=== PATIENT | male | born 1925 | race Caucasian/White ===

== ENCOUNTER 2017-01-16 15:42 | Emergency (ER) | payer OTHER ==
[~2017-01-16] VITALS: Ht 177.8 cm; Wt 75.4 kg
[~2017-01-16 15:42] MED LIST: AMB5 PO; ASPI-461; CARV6.25 PO; FRS/40 PO; GLC850 PO; GLIP5TAB3 PO; LISI10TA PO; NTRSL3 UT; OMEP20TA PO; RANI150C4 PO; SILV1CRE73 TOP; STLS PO; TRIA0.1C20 TOP
[2017-01-16 15:44] VITALS: TEMP 36.5; Ht 177.8 cm; Wt 75.4 kg
--- NOTE | 2017-01-16 16:29 | DIAGNOSTIC IMAGING REPORT ---
RIGHT HIP 3 VIEWS HISTORY: Right foot pain. injury COMPARISON: None. FINDINGS: Posterior calcaneal spur. No fracture or dislocation. Dorsal soft tissue swelling. The bones are osteopenic. The Lisfranc joint is intact. Mild degenerative changes within the right foot. No radiopaque foreign bodies. IMPRESSION: No acute fracture or dislocation within the right foot. Dorsal soft tissue swelling. Electronically signed by: Kaden Delgado M.D. 01/16/2017 4:28 PM Dictated Date/Time: 01/16/2017 4:25 PM
[2017-01-16] MEDS ORDERED: AMIO200T4 PO (17:05)
[2017-01-16] MEDS ORDERED: WARF5TAB90 PO (17:05)
[2017-01-16] MEDS ORDERED: ZOLP6.252 PO (17:05)
[2017-01-16] MEDS ORDERED: ANSHCCR/ TOP (17:05)
[2017-01-16] MEDS ORDERED: DOCU100C PO (17:05)
[2017-01-16] MEDS ORDERED: TRMCR515 TOP (17:05)
[2017-01-16] MEDS ORDERED: CARV12.5 PO (17:05)
[2017-01-16] MEDS ORDERED: CHOL100027 PO (17:05)
[2017-01-16] MEDS ORDERED: LISI10TA PO (17:05)
[2017-01-16] MEDS ORDERED: GLIP5TAB3 PO (17:05)
[2017-01-16 19:21] LABS: PROTHROMBIN TIME (PATIENT) > 100.0 SECONDS (9.0-12.0)
[2017-01-16 19:26] LABS: INR > 8.0 (0.9-1.1); PARTIAL THROMBOPLASTIN RATIO 3.7
[2017-01-16] MEDS ORDERED: PHYTONADIONE 5 MG TAB PO STA (19:30)
--- NOTE | 2017-01-16 19:33 | EMERGENCY ROOM VISIT NOTE ---
History Report prepared by Melissa: Kathy Underwood Under the Supervision of: Dr. Omega Bloom D.O. First contact with patient: 16:00 Chief Complaint: FOOT PAIN Stated Complaint: FOOT History of Present Illness The patient is a 89 year old male who presents to the Emergency Room with complaints of constant right foot pain beginning this morning. The patient states that his foot was completely normal before he went to sleep last night and when he woke up his foot was swollen, red, and bruised. He reports that he does not remember any injury or trauma to the foot. He notes that he is on a blood thinner and occasionally has foot swelling during the daytime. The patient states that he has seen a foot doctor and was told to come into the ED. Source of History: patient Onset: this morning Position: foot (right) Quality: other (swelling) Timing: constant Note: Pt complains of redness and bruising. He denies any known injury or trauma. Review of Systems See HPI for pertinent positives & negatives. A total of 10 systems reviewed and were otherwise negative. Past Medical & Surgical Medical Problems: (1) Coronary artery disease (2) Dyslipidemia (3) Esophageal dysphagia (4) Essential hypertension (5) s/p AAA repair (6) s/p appendectomy (7) s/p CABG (8) s/p EGD with esophageal dilatation (9) s/p exploratory lap (10) s/p left carotid endarterectomy (11) s/p repair right inguinal hernia (12) Small bowel obstruction Family History No pertinent family history stated. Social History Smoking Status: Former Smoker Alcohol Use: none Marital Status: Occupation Status: retired Current/Historical Medications Scheduled Amiodarone Hcl (Cordarone), 200 MG PO DAILY Carvedilol (Coreg), 12.5 MG PO BID Cholecalciferol (Vitamin D 1000 Unit), 1,000 INTER.UNIT PO DAILY Docusate Sodium (Stool Softener), 200 MG PO QAM Furosemide (Lasix), 20 MG PO DAILY Glipizide (Glucotrol), 10 MG PO BID Hydrocortisone (Hydrocortisone 2.5%), 1 APPLN TOP DAILY Lisinopril (Prinivil), 10 MG PO DAILY Nitroglycerin (Nitrostat), 0.3 MG UT PRN Ranitidine Hcl (Ranitidine Hcl), 150 MG PO BID Triamcinolone Acet (Triamcinolone Acetonide), 1 APPLN TOP DAILY Warfarin Sodium (Coumadin), 5 MG PO Q2D Warfarin Sodium (Coumadin), 2.5 MG PO Q2D Zolpidem Tartrate (Ambien Cr), 6.25 MG PO HS Allergies Coded Allergies: Atorvastatin (Verified Allergy, Mild, 01/28/13) Erythromycin (Verified Allergy, Mild, 01/28/13) Penicillins (Verified Allergy, Mild, 01/28/13) Simvastatin (Verified Allergy, Mild, 01/28/13) Physical Exam Vital Signs Date Time Temp Pulse Resp B/P (MAP) Pulse Ox O2 Delivery O2 Flow Rate FiO2 01/16/17 19:54 69 20 161/75 97 01/16/17 18:40 61 20 177/85 92 Room Air 01/16/17 17:46 57 20 154/70 92 Room Air 01/16/17 15:44 36.5 66 17 156/73 92 Room Air Physical Exam CONSTITUTIONAL/VITAL SIGNS: Reviewed / noted above. GENERAL: Non-toxic in appearance. INTEGUMENTARY: Warm, dry, and [place]. HEAD: Normocephalic. EYES: without scleral icterus or trauma. ENT/OROPHARYNX: clear and moist. LYMPHADENOPATHY/NECK: Is supple without lymphadenopathy or meningismus. RESPIRATORY: Lungs clear and equal. CARDIOVASCULAR: Regular rate and rhythm. GI/ABDOMEN: Soft and nontender. No organomegaly or pulsatile mass. No rebound or guarding. Normal bowel sounds. EXTREMITIES: Tender to palpation to the dorsal aspect of the right foot. Moderate diffuse swelling and ecchymosis throughout the entire foot. Bilateral lower extremity edema. BACK: No CVA tenderness. NEUROLOGICAL: Intact without focal deficits. PSYCHIATRIC: normal affect. MUSCULOSKELETAL: Normally developed with good muscle tone. Medical Decision & Procedures ER Provider Diagnostic Interpretation: X ray results and stated below per my interpretation and radiology interpretation. RIGHT HIP 3 VIEWS FINDINGS: Posterior calcaneal spur. No fracture or dislocation. Dorsal soft tissue swelling. The bones are osteopenic. The Lisfranc joint is intact. Mild degenerative changes within the right foot. No radiopaque foreign bodies. IMPRESSION: No acute fracture or dislocation within the right foot. Dorsal soft tissue swelling. Electronically signed by: Kaden Delgado M.D. 01/16/2017 4:28 PM Dictated Date/Time: 01/16/2017 4:25 PM Laboratory Results Test 01/16/17 18:42 Prothrombin Time > 100.0 SECONDS Prothromb Time International Ratio > 8.0 (0.9-1.1) Activated Partial Thromboplast Time 96.2 SECONDS (21.0-31.0) Partial Thromboplastin Ratio 3.7 Laboratory results as stated above per my review. Medications Administered Medications (Trade) Dose Ordered Sig/Abhishek Route Start Time Stop Time Status Last Admin Dose Admin Phytonadione (Mephyton Tab) 2.5 mg NOW STAT PO 01/16/17 19:30 01/16/17 19:31 DC 01/16/17 19:51 2.5 MG ED Course 1600: Previous medical records were reviewed. The patient was evaluated in room A4. A complete history and physical examination was performed. 1929: Mephyton Tab 2.5mg PO. 1933: On reevaluation, the patient is doing well. I discussed the results and findings with the patient. He verbalized agreement of the treatment plan. The patient was discharged home. Medical Decision Differential diagnosis: Etiologies such as fracture, dislocation, neurovascular compromise, compartment syndrome, soft tissue injury, as well as others were entertained. This is an 89-year-old male who presents to the ED with a chief complaint of right foot pain. The patient states that he noticed swelling of his right foot 2 days ago. He states that he saw a differential specialist yesterday who told them that it was bruised. The patient is chronically on Coumadin. His exam reveals some tenderness to the dorsal aspect of the foot. The other aspects of the foot reveal diffuse ecchymosis and swelling. He does have bilateral lower extremity edema in both lower extremities. X-ray of the right foot did not show any fractures or dislocations. INR is greater than 8. The patient was given 2.5 mg of oral vitamin K. He was told the results of this test. He was told to hold his Coumadin over the weekend. He is to have his INR rechecked on Thursday. He is felt to be stable for discharge. Medication Reconcilliation Current Medication List: was personally reviewed by me Blood Pressure Screening Patient's blood pressure: Elevated blood pressure Blood pressure disposition: Elevated BP felt to be situational Impression Primary Impression: Elevated INR Additional Impression: Foot contusion Scribe Attestation The scribe's documentation has been prepared under my direction and personally reviewed by me in its entirety. I confirm that the note above accurately reflects all work, treatment, procedures, and medical decision making performed by me. Departure Information Dispostion Home / Self-Care Referrals No Doctor, Assigned (PCP) Patient Instructions My [facility] Additional Instructions Did not take your Coumadin until rechecked by your doctor or Coumadin clinic on Thursday. Have your INR/Coumadin level rechecked on Thursday. Your INR today is >8. Elevate leg as much as possible. Return for any concerns or any additional areas of bleeding. Problem Qualifiers
[2017-01-16 19:54] VITALS: BP 161/75; PULSE 69; O2SAT 97
== END 2017-01-16 19:55 | disposition home or self-care (01) ==
LOC: C.EDB 15:43 → C.EDA 19:55
DX: Z79.1 Long term (current) use of non-steroidal anti-inflammatories (NSAID) (principal); S90.30XA Contusion of unspecified foot, initial encounter; X58.XXXA Exposure to other specified factors, initial encounter; I25.10 Atherosclerotic heart disease of native coronary artery without angina pectoris; E78.5 Hyperlipidemia, unspecified; I10 Essential (primary) hypertension; Z87.891 Personal history of nicotine dependence; Z79.01 Long term (current) use of anticoagulants; Z51.81 Encounter for therapeutic drug level monitoring

== ENCOUNTER 2017-01-19 12:46 | Emergency (ER) | payer OTHER ==
[~2017-01-19] VITALS: Ht 177.8 cm; Wt 73.0 kg
[~2017-01-19 12:46] MED LIST changes: -AMB5 PO; +AMIO200T4 PO; +ANSHCCR/ TOP; -ASPI-461; +CARV12.5 PO; -CARV6.25 PO; +CHOL100027 PO; +DOCU100C PO; -GLC850 PO; -OMEP20TA PO; -SILV1CRE73 TOP; -STLS PO; -TRIA0.1C20 TOP; +TRMCR515 TOP; +WARF5TAB90 PO; +ZOLP6.252 PO
[2017-01-19 13:09] VITALS: TEMP 36.7; Ht 177.8 cm; Wt 73.0 kg
--- NOTE | 2017-01-19 13:32 | EMERGENCY ROOM VISIT NOTE ---
History First contact with patient: 13:19 Chief Complaint: FOOT PAIN Stated Complaint: FOOT PAIN History of Present Illness The patient is a 89 year old male who presents to the Emergency Room with complaints of foot pain and swelling. The patient was seen here 2 days ago. He had swelling and bruising to the right foot. He did not have any specific injury. The patient's INR was greater than 8. He does take Coumadin. He was given vitamin K and held his Coumadin over the weekend. An x-ray of the foot 2 days ago did not reveal any acute abnormality. The patient had also seen a foot doctor who thought it was a bruise. The patient does not recall any falls or injuries. He states that the swelling and bruising have worsened. He rates his discomfort an 8/10. He has pain with weightbearing. He denies any pain in his chest or trouble breathing. He denies any abdominal pain, nausea or vomiting. He denies any persistent numbness or tingling. He denies any coolness in the foot. Review of Systems A 10 system review of systems was completed with positives and pertinent negatives listed in the HPI. Past Medical/Surgical History Medical Problems: (1) Coronary artery disease (2) Dyslipidemia (3) Esophageal dysphagia (4) Essential hypertension (5) s/p AAA repair (6) s/p appendectomy (7) s/p CABG (8) s/p EGD with esophageal dilatation (9) s/p exploratory lap (10) s/p left carotid endarterectomy (11) s/p repair right inguinal hernia (12) Small bowel obstruction Social History Smoking Status: Former Smoker Alcohol Use: none Marital Status: Occupation Status: retired Current/Historical Medications Scheduled Amiodarone Hcl (Cordarone), 200 MG PO DAILY Carvedilol (Coreg), 12.5 MG PO BID Cholecalciferol (Vitamin D 1000 Unit), 1,000 INTER.UNIT PO DAILY Docusate Sodium (Stool Softener), 200 MG PO QAM Furosemide (Lasix), 20 MG PO DAILY Glipizide (Glucotrol), 10 MG PO BID Hydrocortisone (Hydrocortisone 2.5%), 1 APPLN TOP DAILY Lisinopril (Prinivil), 10 MG PO DAILY Nitroglycerin (Nitrostat), 0.3 MG UT PRN Ranitidine Hcl (Ranitidine Hcl), 150 MG PO BID Triamcinolone Acet (Triamcinolone Acetonide), 1 APPLN TOP DAILY Warfarin Sodium (Coumadin), 5 MG PO Q2D Warfarin Sodium (Coumadin), 2.5 MG PO Q2D Zolpidem Tartrate (Ambien Cr), 6.25 MG PO HS Physical Exam Vital Signs Date Time Temp Pulse Resp B/P (MAP) Pulse Ox O2 Delivery O2 Flow Rate FiO2 01/19/17 17:26 67 20 153/81 97 01/19/17 16:11 67 01/19/17 15:05 56 20 156/83 90 Room Air 01/19/17 13:09 36.7 55 22 143/67 93 Room Air Physical Exam VITALS: Vitals are noted on the nurse's note and reviewed by myself. Vital signs stable. The patient is afebrile. GENERAL: This is an 89-year-old male, in no acute distress, nondiaphoretic, well -developed well-nourished. SKIN: There is moderate edema and ecchymosis noted to the right foot. There is erythema, edema and tenderness over the dorsal aspect. There is ecchymosis extending to the toes. There is no lymphangitic streaking. There is mild warmth but it is not hot. There is no tenting of the skin. Capillary reflex less than 2 seconds. HEAD: Normocephalic atraumatic. EARS: The external ears are normal in appearance. EYES: Pupils equal round and reactive to light and accommodation. Conjunctivae without injection, sclerae without icterus. Extraocular movements intact. NOSE: Patent, turbinates without inflammation or discharge. MOUTH: Mucous membranes moist. Tonsils are not enlarged. Pharynx without erythema or exudate. Uvula midline. Airway patent. Tongue does not deviate. NECK: Supple without nuchal rigidity. No lymphadenopathy. No thyromegaly. Cervical spine is nontender. No JVD. HEART: Slow rate and regular rhythm. LUNGS: Clear to auscultation bilaterally without wheezes, rales or rhonchi. No retractions or accessory muscle use. MUSCULOSKELETAL: There is ecchymosis, edema, erythema as noted above. There is tenderness to palpation over the dorsal aspect of the right foot. Sensation is intact. There is no coldness. There is pain with any deep palpation. NEURO: Patient was alert and oriented to person place and time. No focal neurological deficits. Medical Decision & Procedures ER Provider Diagnostic Interpretation: CHEST ONE VIEW PORTABLE CLINICAL HISTORY: Shortness of breath. COMPARISON STUDY: Chest radiograph February 11, 2013. FINDINGS: A single lead left subclavian pacer/AICD is in place. There are median sternotomy wires. Minimal left basilar opacity is present. There is pulmonary vascular congestion. There is mild interstitial thickening. No lobar consolidation is present. Mild cardiomegaly is noted. IMPRESSION: 1. Pulmonary vascular congestion. 2. Mild left basilar opacity which favors atelectasis. However, radiographic follow-up is recommended. Laboratory Results 01/19/17 13:33 Red Blood Count 4.56, Mean Corpuscular Volume 89.9, Mean Corpuscular Hemoglobin 27.0, Mean Corpuscular Hemoglobin Concent 30.0, Mean Platelet Volume 9.3, Neutrophils (%) (Auto) 71.1, Lymphocytes (%) (Auto) 15.3, Monocytes (%) (Auto) 10.2, Eosinophils (%) (Auto) 2.9, Basophils (%) (Auto) 0.4, Neutrophils # (Auto ) 5.43, Lymphocytes # (Auto) 1.17, Monocytes # (Auto) 0.78, Eosinophils # (Auto ) 0.22, Basophils # (Auto) 0.03 01/19/17 13:33 Test 01/19/17 13:33 01/19/17 16:27 White Blood Count 7.64 K/uL (4.8-10.8) Red Blood Count 4.56 M/uL (4.7-6.1) Hemoglobin 12.3 g/dL (14.0-18.0) Hematocrit 41.0 % (42-52) Mean Corpuscular Volume 89.9 fL (80-100) Mean Corpuscular Hemoglobin 27.0 pg (25-34) Mean Corpuscular Hemoglobin Concent 30.0 g/dl (32-36) Platelet Count 181 K/uL (130-400) Mean Platelet Volume 9.3 fL (7.4-10.4) Neutrophils (%) (Auto) 71.1 % Lymphocytes (%) (Auto) 15.3 % Monocytes (%) (Auto) 10.2 % Eosinophils (%) (Auto) 2.9 % Basophils (%) (Auto) 0.4 % Neutrophils # (Auto) 5.43 K/uL (1.4-6.5) Lymphocytes # (Auto) 1.17 K/uL (1.2-3.4) Monocytes # (Auto) 0.78 K/uL (0.11-0.59) Eosinophils # (Auto) 0.22 K/uL (0-0.5) Basophils # (Auto) 0.03 K/uL (0-0.2) RDW Standard Deviation 52.4 fL (36.4-46.3) RDW Coefficient of Variation 16.2 % (11.5-14.5) Immature Granulocyte % (Auto) 0.1 % Immature Granulocyte # (Auto) 0.01 K/uL (0.00-0.02) Prothrombin Time 73.7 SECONDS (9.0-12.0) Prothromb Time International Ratio 6.4 (0.9-1.1) Activated Partial Thromboplast Time 62.2 SECONDS (21.0-31.0) Partial Thromboplastin Ratio 2.4 Anion Gap 6.0 mmol/L (3-11) Est Creatinine Clear Calc Drug Dose 30.4 ml/min Estimated GFR () 40.5 Estimated GFR (Non- 35.0 BUN/Creatinine Ratio 20.5 (10-20) Calcium Level 8.8 mg/dl (8.5-10.1) Total Bilirubin 0.4 mg/dl (0.2-1) Aspartate Amino Transf (AST/SGOT) 15 U/L (15-37) Alanine Aminotransferase (ALT/SGPT) 15 U/L (12-78) Alkaline Phosphatase 52 U/L (45-117) Troponin I 0.018 ng/ml (0-0.045) Total Protein 7.4 gm/dl (6.4-8.2) Albumin 3.1 gm/dl (3.4-5.0) Globulin 4.3 gm/dl (2.5-4.0) Albumin/Globulin Ratio 0.7 (0.9-2) Bedside Troponin I 0.030 ng/ml (0-0.045) Medications Administered Medications (Trade) Dose Ordered Sig/Abhishek Route Start Time Stop Time Status Last Admin Dose Admin Phytonadione 2.5 mg/Sodium Chloride 50.25 ml @ 100.5 mls/ hr ONE ONCE IV 10/2/17 15:00 01/19/17 16:11 DC 01/19/17 15:44 100.5 MLS/HR Phytonadione (Mephyton Tab) 2.5 mg NOW STAT PO 01/19/17 16:09 01/19/17 16:11 DC 01/19/17 16:24 2.5 MG Procedure The patient was monitored on a traffic monitor specialist and maintained a sinus rhythm. ECG Indication: SOB/dyspnea Rate (beats per minute): 66 Rhythm: sinus rhythm Findings: 1st degree AV block Change: no significant change ED Course The patient was seen and examined. Previous visits were reviewed. The patient does not have a fever or leukocytosis. He does have a mild anemia. His BUN/ creatinine creatinine are elevated at 35 and 1.7, respectively. Upon review of documentation from [facility], this appears to be his baseline. Troponin was not elevated. INR was elevated at 6.4. This is improved from the greater than 8 2 days ago. Chest x-ray suggests atelectasis The patient presents to the emergency department with swelling and hematoma to the right foot. The patient's INR was greater than 8 when he was seen here 2 days ago. He held his Coumadin and was given 2.5 mg by mouth vitamin K at that time. His INR today is 6.4. He notes increased swelling. There was no evidence for fracture on x-ray done 2 days ago. This is unlikely to represent a blood clot given the super therapeutic INR. There is no lymphangitic streaking, fever, leukocytosis or significant warmth to suggest cellulitis. The erythema is likely secondary to the hematoma and blood. The patient was ordered 2.5 mg IV vitamin K. When this was started, approximately 5 minutes into the infusion the patient complained of a sensation of shortness of breath. The infusion was stopped. The patient's symptoms completely resolved. However, at that time the EKG, troponin and chest x-ray were ordered. The patient was able to ambulate to the bathroom without any significant difficulty. The patient stated those symptoms had completely resolved. The patient was instead given oral vitamin K. The patient will follow with the Coumadin clinic tomorrow for recheck. He should return to the emergency department sooner with any worsening symptoms. The patient was anxious to be discharged. The patient was also seen and examined by Dr. Shafer who agrees with the assessment and treatment plan. Medical Decision The differential diagnosis includes hematoma, compartment syndrome, cellulitis, fracture, foreign body, DVT, among others Medication Reconcilliation Current Medication List: was personally reviewed by me Blood Pressure Screening Patient's blood pressure: Elevated blood pressure Blood pressure disposition: Referred to PCP Impression Primary Impression: Supratherapeutic INR Additional Impression: Hematoma Departure Information Dispostion Home / Self-Care Condition GOOD Referrals Rashid Mcnair M.D. (PCP) Patient Instructions ED Hematoma, My [facility] Additional Instructions Hold coumadin today Have your INR rechecked tomorrow Recheck with your family doctor by the end of the week Elevated the foot as much as possible Return with worsening symptoms Problem Qualifiers
[2017-01-19 13:52] LABS: BASO % 0.4 %; BASO ABS # 0.03 K/uL (0-0.2); COMPLETE YES; EOS % 2.9 %; IG% 0.1 %; LYMPH % 15.3 %; LYMPH ABS # 1.17 K/uL (1.2-3.4); MEAN CELL VOLUME 89.9 fL (80-100); MEAN PLATELET VOLUME 9.3 fL (7.4-10.4); MONO % 10.2 %; NEUT % 71.1 %; PLATELET COUNT 181 K/uL (130-400); RED BLOOD COUNT 4.56 M/uL (4.7-6.1); WHITE BLOOD COUNT 7.64 K/uL (4.8-10.8)
[2017-01-19 14:10] LABS: BUN/CREATININE RATIO 20.5 (10-20); CALCIUM 8.8 mg/dl (8.5-10.1); CREATININE 1.7 mg/dl (0.60-1.40); POTASSIUM 4.4 mmol/L (3.5-5.1)
[2017-01-19 14:12] LABS: ALB/GLOB RATIO 0.7 (0.9-2)
[2017-01-19 14:15] LABS: PARTIAL THROMBOPLASTIN RATIO 2.4; PROTHROMBIN TIME (PATIENT) 73.7 SECONDS (9.0-12.0)
[2017-01-19 14:24] LABS: INR 6.4 (0.9-1.1)
[2017-01-19] MEDS ORDERED: PHYTONADIONE INJ 2.5 MG in SODIUM CHLORIDE 0.9% 50ML 50 ML IV ONE (15:00)
[2017-01-19] MEDS ORDERED: PHYTONADIONE 5 MG TAB PO STA (16:09)
--- NOTE | 2017-01-19 17:04 | DIAGNOSTIC IMAGING REPORT ---
CHEST ONE VIEW PORTABLE CLINICAL HISTORY: Shortness of breath. COMPARISON STUDY: Chest radiograph February 11, 2013. FINDINGS: A single lead left subclavian pacer/AICD is in place. There are median sternotomy wires. Minimal left basilar opacity is present. There is pulmonary vascular congestion. There is mild interstitial thickening. No lobar consolidation is present. Mild cardiomegaly is noted. IMPRESSION: 1. Pulmonary vascular congestion. 2. Mild left basilar opacity which favors atelectasis. However, radiographic follow-up is recommended. Electronically signed by: Kyler Bertrand M.D. 01/19/2017 5:02 PM Dictated Date/Time: 01/19/2017 4:59 PM
[2017-01-19 17:26] VITALS: BP 153/81; PULSE 67; O2SAT 97
== END 2017-01-19 17:42 | disposition home or self-care (01) ==
LOC: C.EDB 12:46
DX: S90.31XA Contusion of right foot, initial encounter (principal); X58.XXXA Exposure to other specified factors, initial encounter; R79.1 Abnormal coagulation profile; I25.10 Atherosclerotic heart disease of native coronary artery without angina pectoris; E78.5 Hyperlipidemia, unspecified; I10 Essential (primary) hypertension; Z95.1 Presence of aortocoronary bypass graft; Z87.891 Personal history of nicotine dependence; Z79.01 Long term (current) use of anticoagulants; Z79.899 Other long term (current) drug therapy